=== PATIENT | female | born 1985 | race Caucasian/White ===

== ENCOUNTER 2022-08-18 14:24 | Emergency (ER) | payer BC ==
[2022-08-18] MEDS ORDERED: Sodium Chloride 0.9% 10 ML Syringe FLUSH PRN (14:37)
[2022-08-18] MEDS ORDERED: Ondansetron 4 MG/2 ML SDV IVPUSH ONE (14:40)
[2022-08-18] MEDS ORDERED: Sodium Chloride 0.9% 1,000 ML IV SCH (14:45)
[2022-08-18] MEDS ORDERED: Ketorolac 30 MG/ML SDV IVPUSH ONE (15:32)
[2022-08-18 15:51] LABS: ANION GAP 11.9 meq/L (7-15)
[2022-08-18 15:56] LABS: CORONAVIRUS COVID-19 NAA NEGATIVE (NEGATIVE); RESPIRATORY SYNCYTIAL VIR NAA NEGATIVE (NEGATIVE)
[2022-08-18] MEDS ORDERED: Sodium Chloride 0.9% 1,000 ML IV ONE (16:15)
[2022-08-18 18:42] VITALS: BP 121/77; PULSE 76
== END 2022-08-18 18:15 | disposition home or self-care (01) ==
LOC: LL.ED 14:24
DX: E86.0 Dehydration (principal); E66.9 Obesity, unspecified; Z68.37 Body mass index [BMI] 37.0-37.9, adult; Z20.822 Contact with and (suspected) exposure to COVID-19
CPT/HCPCS: 0241U; 36415; 74019; 80053; 81001; 81025; 83605; 83735; 85025; 96361; 96374; 96375; 99284; 99284-25; J1885; J2405; J7030